=== PATIENT | female | born 1975 | race Caucasian/White ===

== ENCOUNTER 2019-08-07 21:01 | Emergency (ER) | payer OTHER ==
[2019-08-07 21:09] VITALS: BP 135/74; PULSE 76; TEMP 98.3; BMI 27.7
--- NOTE | 2019-08-07 21:10 | PDOC ---
Rapid Medical Evaluation Time Seen by Provider: 08/07/19 21:08 Medical Evaluation: 08/07/19 21:08 This patient had rapid medical evaluation in triage cc:chest pain HPI: Patient reports left sided chest pain since this afternoon, states pain getting worse with shortness of breath Denies nausea, or dizziness PE: NAD non tender chest, lungs clear bilaterally heart s1s2 ext: no edema Orders: ekg This patient will proceed to ed for further evaluation. 08/07/19 21:09 Discharge Disposition - Diagnosis Chest pain - Referrals - Patient Instructions - Post Discharge Activity
--- NOTE | 2019-08-08 13:02 | EKG ---
Test Reason : Blood Pressure : / mmHG Vent. Rate : 079 BPM Atrial Rate : 079 BPM P-R Int : 138 ms QRS Dur : 084 ms QT Int : 370 ms P-R-T Axes : 040 028 033 degrees QTc Int : 424 ms NORMAL SINUS RHYTHM NORMAL ECG NO PREVIOUS ECGS AVAILABLE Confirmed by Pedro Luis Painter MD ([id number]) on 08/08/2019 1:02:28 PM Referred By: Confirmed By:Pedro Luis Painter MD
== END 2019-08-07 22:30 | disposition left against medical advice (07) ==
LOC: JER 21:01
DX: R07.9 Chest pain, unspecified (principal)
CPT/HCPCS: 93005; 93010; 99283-25